=== PATIENT | female | born 1965 | race Caucasian/White ===

== ENCOUNTER 2023-05-28 09:33 | Outpatient (OUT) | payer MEDICARE, SELFPAY ==
[2023-05-28 09:57] LABS: Basophils Percent Auto 0.1 % (0.2-2.0); Eosinophils Percent Auto 0.5 % (0.9-7.0); Hematocrit 53.3 % (36.0-48.0); Immature Granulocytes Abs Auto 0.01 10^3/uL (0.00-0.03); Immature Granulocytes Pct Auto 0.1 % (0.0-0.5); Lymphocytes Absolute Auto 2.9 10^3/uL (1.2-3.8); Lymphocytes Percent Auto 36.5 % (20.5-60.0); Mean Corpuscular HGB Conc 33.8 g/dL (29.9-35.2); Mean Corpuscular Hemoglobin 31.4 pg (26.7-34.0); Mean Corpuscular Volume 92.9 fL (81.0-99.0); Monocytes Absolute Auto 0.4 10^3/uL (0.3-0.8); Neutrophils Absolute Auto 4.6 10^3/uL (1.4-6.5); Neutrophils Percent Auto 57.8 % (43.0-75.0); Platelet Count 162 10^3/uL (150-450); Red Blood Count 5.74 10^6/uL (4.20-5.40); Red Cell Distribution Width 13.1 % (11.0-15.0); White Blood Count 7.9 10^3/uL (4.0-11.0)
[2023-05-28 11:33] LABS: Alanine Aminotransferase 19 U/L (14-59); Albumin Globulin Ratio 0.9; Albumin Level 3.5 g/dL (3.4-5.0); Alkaline Phosphatase 105 U/L (46-116); Anion Gap 11.9; Aspartate Amino Transferase 16 U/L (15-37); BUN Creatinine Ratio 17.3; Bilirubin Total 0.8 mg/dL (0.2-1.0); Chloride 101 mmol/L (98-107); Chol HDL Ratio 4.5; Cholesterol 220 mg/dL (<=200); Estimated GFR (African America >60 (>=60); Estimated GFR (Non-African Ame >60 (>=60); Free Thyroxine Index 3.06 (1.30-4.50); Globulin 4.1 g/dL; Glucose 131 mg/dL (74-106); HDL Cholesterol 49 mg/dL (40-60); Potassium 3.9 mmol/L (3.5-5.1); Sodium 137 mmol/L (136-145); Thyroid Stimulating Hormone 0.904 uIU/mL (0.358-3.740); Total Protein 7.6 g/dL (6.4-8.2); Triglycerides 111 mg/dL (<=150); VLDL CHOLESTEROL 22.2 mg/dL
[2023-05-28 12:40] LABS: Estimated Average Glucose 126 mg/dL
[2023-05-29 11:09] LABS: Insulin 15.1 uIU/mL (2.6-24.9)
== END 2023-05-28 09:34 | disposition home or self-care (01) ==
LOC: LAB 09:36
PROVIDERS: PCP Nurse Practitioner Family; Visit Provider Nurse Practitioner Family
DX: E78.5 Hyperlipidemia, unspecified (principal); K21.9 Gastro-esophageal reflux disease without esophagitis; J44.9 Chronic obstructive pulmonary disease, unspecified; R73.09 Other abnormal glucose; D64.9 Anemia, unspecified
CPT/HCPCS: 36415; 80053; 80061; 83036; 83525; 83540; 84436; 84443; 84479; 85025

== ENCOUNTER 2024-12-11 06:57 | Inpatient (IN) | payer MEDICARE, SELFPAY ==
[2024-12-11] VITALS (48 sets, daily range): BP systolic 99–155; BP diastolic 55–88; PULSE 87–144; TEMP 35.9–36.8; O2SAT 88–99; BMI 31.3; BMI 29.7
--- NOTE | 2024-12-11 07:08 | ECG_ITS ---
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 Measurements Intervals [place] Rate: 141 P: 90 VT: 146 QRS: 259 QRSD: 86 T: 73 QT: 288 QTc: 370 Interpretive Statements 1120 Sinus tachycardia 2420 RSR (QR) in lead V1/V2, consistent with right ventricular conduction delay 3134 Anterior myocardial infarction, age undetermined 7100 Abnormal right axis deviation 7400 S1-S2-S3 pattern, consistent with pulmonary disease, RVH, or normal variant 9150 abnormal ECG Compared to ECG 01/14/2018 09:15:51 Right-axis deviation now present Right ventricular hypertrophy now present Ventricular premature complex(es) no longer present Electronically Signed On 12-11-2024 17:11:46 EDT by JOHN DON M.D.
--- NOTE | 2024-12-11 07:15 | ED.GENADUL1 ---
HPI HPI - General Adult General Chief complaint: Shortness of Breath/Dyspnea Stated complaint: SOB Time Seen by Provider: 12/11/24 07:08 Source: patient Mode of arrival: ambulance History of Present Illness HPI narrative: 59-year-old female presents for difficulty breathing. She has had trouble breathing for 3 days and has been coughing up yellow phlegm. She has been using her nebulizer at home. No fever no other family members are ill. She has a history of COPD and continues to smoke. She was given IV Solu-Medrol by the paramedics and aerosol treatments and the patient tells me that she is feeling somewhat better now. Related Data Home Medications ?Medication ?Instructions ?Recorded ?Confirmed albuterol sulfate 90 mcg/actuation 1 puff inhalation Q4H PRN 12/11/24 12/11/24 aerosol inhaler shortness of breath or wheezing atenolol 25 mg tablet 25 mg PO .QD 12/11/24 12/11/24 buprenorphine 8 mg-naloxone 2 mg 2 film sublingual .QD 12/11/24 12/11/24 sublingual film fluticasone fur. 100 mcg-umeclid 1 inh inhalation .QD 12/11/24 12/11/24 62.5 mcg-vilant 25 mcg inhalat.powder (Trelegy Ellipta) lisinopril 10 1 tab PO .QD 12/11/24 12/11/24 mg-hydrochlorothiazide 12.5 mg tablet montelukast 10 mg tablet 10 mg PO .QD 12/11/24 12/11/24 omeprazole 40 mg capsule,delayed 40 mg PO .ACB 12/11/24 12/11/24 release risperidone 1 mg tablet 1 mg PO .QD 12/11/24 12/11/24 simvastatin 40 mg tablet 40 mg PO QPM 12/11/24 12/11/24 trazodone 50 mg tablet 50 mg PO .QHS 12/11/24 12/11/24 Allergies Allergy/AdvReac Type Severity Reaction Status Date / Time aspirin Allergy Unknown Unknown Verified 12/11/24 07:05 PCN Allergy Intermediate Unknown Uncoded 12/11/24 07:05 Opioid HPI Opioid Management Most Recent Opioid Data: No Data to Display Review of Systems ROS Narrative A ten point review of systems is negative except as noted above. [facility] Medical History (Updated 12/11/24 @ 08:15 by Luis Roy MD) COPD (chronic obstructive pulmonary disease) ?J44.9 - Chronic obstructive pulmonary disease, unspecified (ICD-10) Social History Little interest or pleasure in doing things: not at all Feeling down, depressed, or hopeless: not at all Exam Narrative Exam Narrative: Nurses note and vital signs reviewed and patient is not hypoxic. General: The patient appears somewhat dyspneic. She is speaking in short sentences. Skin: Warm, dry, no pallor noted. There is no rash noted. Head: Normocephalic, atraumatic Eye: Normal conjunctiva, no drainage Ears, Nose, Mouth, and Throat: oral mucosa is moist. Nares patent. Cardiovascular: Regular Rate and Rhythm, tachycardic Respiratory: Breath sounds are diminished throughout and are equal. Bilateral rhonchi present Back: non-tender GI: Soft and nontender Musculoskeletal: The patient has no evidence of calf tenderness, no pitting edema, symmetrical pulses noted bilaterally Neurological: A&O, normal speech Psychiatric: Cooperative Constitutional Vital Signs, click to edit/add: Last Vital Signs Temp 97.4 F L 12/11/24 06:56 Pulse 132 H 12/11/24 08:10 Resp 25 H 12/11/24 08:10 BP 155/79 H 12/11/24 07:12 Pulse Ox 89 L 12/11/24 08:10 O2 Del Method Nasal Cannula 12/11/24 07:31 O2 Flow Rate 2 12/11/24 07:31 Course Vital Signs Vital signs: Vital Signs Temperature 97.4 F L 12/11/24 06:56 Pulse Rate 144 H 12/11/24 06:56 Respiratory Rate 28 H 12/11/24 06:56 Pulse Oximetry 88 L 12/11/24 06:56 Oxygen Delivery Method Simple Mask 12/11/24 06:56 Oxygen Delivery Flow Rate 15 12/11/24 06:56 Temperature 97.4 F L 12/11/24 06:56 Pulse Rate 132 H 12/11/24 08:10 Respiratory Rate 25 H 12/11/24 08:10 Blood Pressure 155/79 H 12/11/24 07:12 Pulse Oximetry 89 L 12/11/24 08:10 Oxygen Delivery Method Nasal Cannula 12/11/24 07:31 Oxygen Delivery Flow Rate 2 12/11/24 07:31 Medical Decision Making MDM Narrative Medical decision making narrative: Checks x-ray does not show an infiltrate. She has been tachycardic here with an O2 sat of 88 to 89%. Paramedics had given her IV Solu-Medrol and she was given another dose of IV Solu-Medrol here as well as multiple aerosol treatments and IV magnesium. The patient continues to say that she is feeling improved though she remains dyspneic. Blood cultures were obtained and she was given IV Rocephin and Zithromax. She is being admitted. Treatment diagnosis and disposition were discussed with the patient. Differential Diagnosis Differential Diagnosis: COPD exacerbation, pneumonia, COVID, influenza Lab Data Lab results reviewed: Yes I reviewed the patient's lab results Labs: Lab Results 12/11/24 12/11/24 Range/Units 07:06 07:11 WBC 11.1 H (4.0-11.0) 10^3/uL RBC 5.91 H (4.20-5.40) 10^6/uL Hgb 18.6 H (12.0-16.0) g/dL Hct 54.8 H (36.0-48.0) % MCV 92.7 (81.0-99.0) fL MCH 31.5 (26.7-34.0) pg MCHC 33.9 (29.9-35.2) g/dL RDW 12.8 (11.0-15.0) % Plt Count 151 (150-450) 10^3/uL MPV 11.0 (9.5-13.5) fL Neut % (Auto) 77.7 H (43.0-75.0) % Lymph % (Auto) 14.3 L (20.5-60.0) % [place] % (Auto) 7.1 (1.7-12.0) % Eos % (Auto) 0.3 L (0.9-7.0) % Baso % (Auto) 0.2 (0.2-2.0) % Neut # (Auto) 8.6 H (1.4-6.5) 10^3/uL Lymph # (Auto) 1.6 (1.2-3.8) 10^3/uL [place] # (Auto) 0.8 (0.3-0.8) 10^3/uL Eos # (Auto) 0.0 (0.0-0.7) 10^3/uL Baso # (Auto) 0.0 (0.0-0.1) 10^3/uL Abs Immat Gran (auto) 0.04 H (0.00-0.03) 10^3/uL Imm/Tot Granulo (auto) 0.4 (0.0-0.5) % Sodium 136 (136-145) mmol/L Potassium 3.7 (3.5-5.1) mmol/L Chloride 97 L (98-107) mmol/L Carbon Dioxide 29.3 (21.0-32.0) mmol/L Anion Gap 13.4 BUN 15.0 (7.0-18.0) mg/dL Creatinine 1.07 H (0.55-1.02) mg/dL Est GFR ( Amer) >60 (>=60 mL/min/1.73m^2) Est GFR (Non-Af Amer) 52 L (>=60 mL/min/1.73m^2) BUN/Creatinine Ratio 14.0 Glucose 158 H (74-106) mg/dL Calcium 9.2 (8.5-10.1) mg/dL Influenza Type A Ag Negative Influenza Type B Ag Negative SARS-CoV-2 Ag (CV2AG) Negative (NEGATIVE) Imaging Data Chest x-ray: Radiologist's impression: Mild enlarged heart size with mild atelectasis at the lung bases, no edema pleural effusion or pneumothorax. Mild hypoinflated lungs ECG Data Attestation: I personally reviewed and interpreted this ECG as follows: (EKG on my interpretation shows sinus tachycardia with a rate of 141) Critical Care Time Critical Care Time Critical Care Time: Yes Total Critical Care Time: 40 Attestation: Due to the high probability of sudden and clinically significant deterioration in the patient's condition he/she required the highest level of my preparedness to intervene urgently I provided critical care time including documentation time, medication orders and management, reevaluation, vital sign assessment, ordering and reviewing of lab tests, ordering and reviewing of x-ray studies, and admission orders. Aggregate critical care time is 40 minutes including only time during which I was engaged in work directly related to his/her care and did not include time spent treating other patients simultaneously. Discharge Plan Discharge Chief Complaint: Shortness of Breath/Dyspnea Clinical Impression: COPD exacerbation Patient Disposition: Admitted As Inpatient Time of Disposition Decision: 08:15 Condition: Fair
[2024-12-11 07:25] LABS: Basophils Percent Auto 0.2 % (0.2-2.0); Eosinophils Percent Auto 0.3 % (0.9-7.0); Hematocrit 54.8 % (36.0-48.0); Hemoglobin 18.6 g/dL (12.0-16.0); Immature Granulocytes Abs Auto 0.04 10^3/uL (0.00-0.03); Immature Granulocytes Pct Auto 0.4 % (0.0-0.5); Lymphocytes Absolute Auto 1.6 10^3/uL (1.2-3.8); Lymphocytes Percent Auto 14.3 % (20.5-60.0); Mean Corpuscular HGB Conc 33.9 g/dL (29.9-35.2); Mean Corpuscular Hemoglobin 31.5 pg (26.7-34.0); Mean Corpuscular Volume 92.7 fL (81.0-99.0); Monocytes Absolute Auto 0.8 10^3/uL (0.3-0.8); Monocytes Percent Auto 7.1 % (1.7-12.0); Neutrophils Absolute Auto 8.6 10^3/uL (1.4-6.5); Neutrophils Percent Auto 77.7 % (43.0-75.0); Platelet Count 151 10^3/uL (150-450); Red Blood Count 5.91 10^6/uL (4.20-5.40); Red Cell Distribution Width 12.8 % (11.0-15.0); White Blood Count 11.1 10^3/uL (4.0-11.0)
[2024-12-11] MEDS: ALBUTEROL SULFATE 2.5 MG/3 ML VIAL NEB IH ×2 (07:30→08:18)
[2024-12-11 07:32] LABS: Anion Gap 13.4; Calcium 9.2 mg/dL (8.5-10.1); Carbon Dioxide 29.3 mmol/L (21.0-32.0); Chloride 97 mmol/L (98-107); Estimated GFR (African America >60 (>=60 mL/min/1.73m^2); Estimated GFR (Non-African Ame 52 (>=60 mL/min/1.73m^2); Glucose 158 mg/dL (74-106); Potassium 3.7 mmol/L (3.5-5.1); Sodium 136 mmol/L (136-145)
[2024-12-11 07:34] LABS: Influenza Virus A Antigen Negative; Influenza Virus B Antigen Negative; Internal Control Within Normal Limits; SARS-CoV-2 Ag NEGATIVE (NEGATIVE)
--- NOTE | 2024-12-11 08:07 | PC.NURSE ---
pt resting in bed with SpO2 at 88-89% on 3L NC. Bumped up O2 to 4L NC. 90%. made aware, awaiting new med orders.
[2024-12-11] MEDS: CEFTRIAXONE 1,000 MG in 0.9 % SODIUM CHLORIDE 50 ML 100 MG IV (08:18)
[2024-12-11] MEDS: METHYLPREDNISOLONE SOD SUCC PF 125 MG/2 ML VIAL IVP ×3 (08:19→20:20)
[2024-12-11] MEDS: MAGNESIUM SULFATE IN WATER 2 GM/50 ML PREMIX IV (08:29)
[2024-12-11] MEDS: AZITHROMYCIN 500 MG in 0.9 % SODIUM CHLORIDE 250 ML 250 MG IV (09:10)
--- NOTE | 2024-12-11 09:53 | P.HP_ITS ---
HPI H&P: HPI History of Present Illness Chief complaint: SOB,COPD EXAC Narrative: Patient with a known history of COPD presented to the emergency with increasing shortness of breath over the last 1 to 2 days, sputum production, she did have a sore throat that resolved, denies fever, When I saw patient in the emergency room, significant dyspnea, and this is just at rest, O2 sat 88% and is on 3 L Opioid HPI Opioid Management Most Recent Pain and Opioid Data: No Data to Display Review of Systems ROS Status of ROS 10 or more systems reviewed and unremark able except as noted in history and below PFSH PFS Medical History (Updated 12/11/24 @ 09:59 by Cole Davis MD) Degenerative disc disease Arthritis ?M19.90 - Unspecified osteoarthritis, unspecified site (ICD-10) Herniated disc Hypertension ?I10 - Essential (primary) hypertension (ICD-10) COPD (chronic obstructive pulmonary disease) ?J44.9 - Chronic obstructive pulmonary disease, unspecified (ICD-10) Surgical History (Updated 12/11/24 @ 09:22 by Miriam Paz RN) History of nasal surgery ?Z98.890 - Other specified postprocedural states (ICD-10) H/O left knee surgery ?Z98.890 - Other specified postprocedural states (ICD-10) History of appendectomy ?Z90.49 - Acquired absence of other specified parts of digestive tract (ICD- 10) Social History Little interest or pleasure in doing things: not at all Feeling down, depressed, or hopeless: not at all Meds Home Medications and Allergies Home Medications ?Medication ?Instructions ?Recorded ?Confirmed ?Type albuterol sulfate 90 mcg/actuation 1 puff inhalation Q4H PRN 12/11/24 12/11/24 History aerosol inhaler shortness of breath or wheezing atenolol 25 mg tablet 25 mg PO .QD 12/11/24 12/11/24 History buprenorphine 8 mg-naloxone 2 mg 2 film sublingual .QD 12/11/24 12/11/24 History sublingual film fluticasone fur. 100 mcg-umeclid 1 inh inhalation .QD 12/11/24 12/11/24 History 62.5 mcg-vilant 25 mcg inhalat.powder (Trelegy Ellipta) lisinopril 10 1 tab PO .QD 12/11/24 12/11/24 History mg-hydrochlorothiazide 12.5 mg tablet montelukast 10 mg tablet 10 mg PO .QD 12/11/24 12/11/24 History omeprazole 40 mg capsule,delayed 40 mg PO .ACB 12/11/24 12/11/24 History release risperidone 1 mg tablet 1 mg PO .QD 12/11/24 12/11/24 History simvastatin 40 mg tablet 40 mg PO QPM 12/11/24 12/11/24 History trazodone 50 mg tablet 50 mg PO .QHS 12/11/24 12/11/24 History Allergies Allergy/AdvReac Type Severity Reaction Status Date / Time aspirin Allergy Unknown Unknown Verified 12/11/24 07:05 PCN Allergy Intermediate Unknown Uncoded 12/11/24 07:05 Exam Constitutional Vital Signs, click to edit/add: Last Vital Signs Temp 97.4 F L 12/11/24 06:56 Pulse 130 H 12/11/24 09:20 Resp 30 H 12/11/24 09:20 BP 117/87 12/11/24 09:15 Pulse Ox 91 L 12/11/24 09:20 O2 Del Method Nasal Cannula 12/11/24 07:31 O2 Flow Rate 2 12/11/24 07:31 Documenting provider has reviewed patient's vital signs: yes Common normals: apparent distress (Moderate respiratory distress) Chest Common normals: inspection of chest normal Respiratory Common normals: abnormal respiratory effort (Moderate distress at rest) and not clear to ascultation bilaterally Effort & inspection: tachypneic Auscultation: rhonchi and wheezes Cardio Common normals: regular rhythm Rate: tachycardic GI Common normals: Normal to inspection, nondistended, normoactive bowel sounds present Extremity Common normals: normal to inspection, full ROM, normal capillary refill and no clubbing, cyanosis or edema Neuro Common normals: oriented x3, CN's II-XII intact bilaterally, moves all extremities and no focal motor deficits Results Labs Labs: Short CBC 12/11/24 Range/Units 07:06 WBC 11.1 H (4.0-11.0) 10^3/uL Hgb 18.6 H (12.0-16.0) g/dL Hct 54.8 H (36.0-48.0) % Plt Count 151 (150-450) 10^3/uL BMP 12/11/24 07:06 Sodium 136 Potassium 3.7 Chloride 97 L Carbon Dioxide 29.3 BUN 15.0 Creatinine 1.07 H Glucose 158 H Calcium 9.2 Assessment and Plan Assessment and Plan (1) COPD exacerbation: (2) Herniated disc: (3) Hypertension: (4) COPD (chronic obstructive pulmonary disease): (5) Sinus tachycardia: (6) Respiratory distress: (7) Acute respiratory failure with hypoxia: (8) Leukocytosis: Plan Admission findings: Sinus tachycardia, respiratory distress, uncontrolled hypertension, acute hypoxia, verbally reported as O2 sat around 80, placed on supplemental oxygen at 3 L and it was only 88%, leukocytosis, chest x-ray consistent with bilateral lower lobe pneumonia causing acute hypoxia and an acute exacerbation of COPD Bilateral lower lobe pneumonia causing acute exacerbation of COPD with acute hypoxia-supplemental oxygen, steroids, aerosols we need to use Xopenex secondary to tachycardia, try patient on IPV's if she is not moving significant air Leukocytosis likely secondary to the above-monitor daily Acute elevation in creatinine-hold off on IV fluids at the present time Uncontrolled hypertension-check BNP and high-sensitivity troponin Iron deficiency anemia-monitor daily Lumbar radiculopathy-Home medications GERD-continue with home medications Insomnia-continue with home medications Admission status: Patient admitted with acute hypoxia secondary to acute exacerbation of COPD secondary to bilateral lower lower lobe pneumonia, significant hypoxia with O2 sat of 88% and that is on 3 L she does not use supplemental oxygen at home, within a high degree of medical certainty she will not be discharged tomorrow secondary to the severity of her hypoxia, medically necessary treatment will span 2 midnights, inpatient status in the stepdown unit ICU
[2024-12-11 10:27] LABS: Lactate/Lactic Acid 1.9 mmol/L (0.4-2.0)
[2024-12-11 10:29] LABS: Alanine Aminotransferase 12 U/L (14-59); Albumin Globulin Ratio 0.9; Albumin Level 3.7 g/dL (3.4-5.0); Alkaline Phosphatase 92 U/L (46-116); Aspartate Amino Transferase 12 U/L (15-37); Bilirubin Direct 0.3 mg/dL (0.0-0.2); Bilirubin Total 1.2 mg/dL (0.2-1.0); Globulin 4.3 g/dL; Magnesium 1.9 mg/dL (1.8-2.4); Troponin I High Sensitivity <4.0 pg/mL (4.0-51.3)
[2024-12-11] MEDS: LEVALBUTEROL HCL 0.63 MG/3 ML VIAL.NEB IH ×3 (10:50→23:34)
[2024-12-11] MEDS: IPRATROPIUM BROMIDE 0.5 MG/2.5 ML VIAL.NEB IH ×3 (10:50→23:33)
[2024-12-11] MEDS: BUDESONIDE 0.5 MG/2 ML AMPULE NEB IH ×2 (10:50→23:33)
[2024-12-11] MEDS: BENZONATATE 100 MG CAPSULE 200 MG PO ×2 (11:52→21:15)
[2024-12-11] MEDS: ENOXAPARIN SODIUM 40 MG/0.4 ML SYRINGE SUBQ (11:52)
[2024-12-11] MEDS: ACETAMINOPHEN 500 MG TABLET 1000 MG PO ×2 (12:10→21:14)
[2024-12-11] MEDS: LEVOFLOXACIN IN DEXTROSE 5 % 750 MG/150 ML PREMIX 100 MG IV (13:48)
[2024-12-11] MEDS: LISINOPRIL 10 MG TABLET PO (17:36)
[2024-12-11] MEDS: HYDROCHLOROTHIAZIDE 25 MG TABLET 12.5 MG PO (17:36)
[2024-12-11] MEDS: TRAMADOL HCL 50 MG TABLET PO ×2 (17:37→23:27)
[2024-12-11] MEDS: NICOTINE 21 MG PATCH.TD24 TD (20:21)
[2024-12-11] MEDS: ATORVASTATIN CALCIUM 20 MG TABLET PO (21:15)
[2024-12-11] MEDS: risperiDONE 1 MG TABLET PO (21:15)
[2024-12-11] MEDS: TRAZODONE HCL 50 MG TABLET PO (23:28)
[2024-12-12] VITALS (25 sets, daily range): BP systolic 96–118; BP diastolic 61–80; PULSE 76–115; TEMP 36.3–36.7; O2SAT 87–100
[2024-12-12] MEDS: METHYLPREDNISOLONE SOD SUCC PF 125 MG/2 ML VIAL IVP ×4 (02:02→21:07)
[2024-12-12] MEDS: LEVALBUTEROL HCL 0.63 MG/3 ML VIAL.NEB IH ×6 (04:22→23:36)
[2024-12-12] MEDS: SODIUM CHLORIDE 0.9% INHALATION 3 ML NEB 6 ML IH ×2 (04:22→19:33)
[2024-12-12] MEDS: IPRATROPIUM BROMIDE 0.5 MG/2.5 ML VIAL.NEB IH ×4 (04:22→23:36)
[2024-12-12] MEDS: PANTOPRAZOLE SODIUM 40 MG TABLET.DR PO (05:43)
[2024-12-12] MEDS: BENZONATATE 100 MG CAPSULE 200 MG PO ×3 (05:43→21:08)
[2024-12-12 06:15] LABS: A. calcoaceticus-baumannii Cpx NOT DETECTED (NOT DETECTE); Bacteroides fragilis NOT DETECTED (NOT DETECTE); Candida albicans NOT DETECTED (NOT DETECTE); Candida auris NOT DETECTED (NOT DETECTE); Candida glabrata NOT DETECTED (NOT DETECTE); Candida krusei NOT DETECTED (NOT DETECTE); Candida parapsilosis NOT DETECTED (NOT DETECTE); Candida tropicalis NOT DETECTED (NOT DETECTE); Cryptococcus neoformans/gattii NOT DETECTED (NOT DETECTE); Enterobacter cloacae complex NOT DETECTED (NOT DETECTE); Enterobacterales NOT DETECTED (NOT DETECTE); Enterococcus faecalis NOT DETECTED (NOT DETECTE); Enterococcus faecium NOT DETECTED (NOT DETECTE); Haemophilus influenzae NOT DETECTED (NOT DETECTE); Klebsiella aerogenes NOT DETECTED (NOT DETECTE); Klebsiella pneumoniae group NOT DETECTED (NOT DETECTE); Listeria monocytogenes NOT DETECTED (NOT DETECTE); Neisseria meningitidis NOT DETECTED (NOT DETECTE); Proteus spp. NOT DETECTED (NOT DETECTE); Pseudomonas aeruginosa NOT DETECTED (NOT DETECTE); Salmonella spp. NOT DETECTED (NOT DETECTE); Serratia marcescens NOT DETECTED (NOT DETECTE); Staphylococcus epidermidis NOT DETECTED (NOT DETECTE); Staphylococcus lugdunensis NOT DETECTED (NOT DETECTE); Stenotrophomonas maltophilia NOT DETECTED (NOT DETECTE); Streptococcus agalactiae NOT DETECTED (NOT DETECTE); Streptococcus pneumoniae NOT DETECTED (NOT DETECTE); Streptococcus pyogenes NOT DETECTED (NOT DETECTE); Streptococcus spp. NOT DETECTED (NOT DETECTE)
[2024-12-12 06:29] LABS: Basophils Percent Auto 0.1 % (0.2-2.0); Hematocrit 51.7 % (36.0-48.0); Hemoglobin 17.3 g/dL (12.0-16.0); Immature Granulocytes Abs Auto 0.03 10^3/uL (0.00-0.03); Immature Granulocytes Pct Auto 0.3 % (0.0-0.5); Lymphocytes Percent Auto 10.7 % (20.5-60.0); Mean Corpuscular HGB Conc 33.5 g/dL (29.9-35.2); Mean Corpuscular Hemoglobin 30.8 pg (26.7-34.0); Mean Platelet Volume 10.8 fL (9.5-13.5); Monocytes Absolute Auto 0.2 10^3/uL (0.3-0.8); Monocytes Percent Auto 2.2 % (1.7-12.0); Neutrophils Absolute Auto 8.3 10^3/uL (1.4-6.5); Neutrophils Percent Auto 86.7 % (43.0-75.0); Platelet Count 158 10^3/uL (150-450); Red Blood Count 5.62 10^6/uL (4.20-5.40); Red Cell Distribution Width 12.4 % (11.0-15.0); White Blood Count 9.6 10^3/uL (4.0-11.0)
[2024-12-12 06:45] LABS: BUN Creatinine Ratio 18.8; Calcium 9.2 mg/dL (8.5-10.1); Carbon Dioxide 29.7 mmol/L (21.0-32.0); Chloride 99 mmol/L (98-107); Estimated GFR (African America >60 (>=60 mL/min/1.73m^2); Estimated GFR (Non-African Ame >60 (>=60 mL/min/1.73m^2); Glucose 152 mg/dL (74-106); Potassium 3.7 mmol/L (3.5-5.1); Sodium 137 mmol/L (136-145)
--- NOTE | 2024-12-12 06:49 | P.PN_ITS ---
Progress Note: Subjective Subjective Interval history: Patient states she does feel better than previous day, but still with conversational dyspnea Exam Constitutional Vital Signs, click to edit/add: Last Vital Signs Temp 98.0 F 12/11/24 23:54 Pulse 115 H 12/12/24 05:49 Resp 24 H 12/12/24 04:22 BP 135/84 12/11/24 23:54 Pulse Ox 90 L 12/12/24 05:49 O2 Del Method Nasal Cannula 12/12/24 04:22 O2 Flow Rate 3 12/12/24 04:22 Documenting provider has reviewed patient's vital signs: yes Common normals: apparent distress (Mild conversational dyspnea) Chest Common normals: inspection of chest normal Respiratory Common normals: abnormal respiratory effort (Mild conversational dyspnea) and not clear to ascultation bilaterally Auscultation: rhonchi (Somewhat better air exchange) and wheezes Cardio Common normals: regular rate and regular rhythm GI Common normals: Normal to inspection, nondistended, normoactive bowel sounds present and soft to palpation Progress Note: Objective Labs Labs: Short CBC 12/11/24 12/12/24 Range/Units 07:06 05:50 WBC 11.1 H 9.6 (4.0-11.0) 10^3/uL Hgb 18.6 H 17.3 H (12.0-16.0) g/dL Hct 54.8 H 51.7 H (36.0-48.0) % Plt Count 151 158 (150-450) 10^3/uL BMP 12/11/24 12/12/24 07:06 05:50 Sodium 136 137 Potassium 3.7 3.7 Chloride 97 L 99 Carbon Dioxide 29.3 29.7 BUN 15.0 16.0 Creatinine 1.07 H 0.85 Glucose 158 H 152 H Calcium 9.2 9.2 Liver Function 12/11/24 Range/Units 07:06 Total Bilirubin 1.2 H (0.2-1.0) mg/dL Direct Bilirubin 0.3 H (0.0-0.2) mg/dL AST 12 L (15-37) U/L ALT 12 L (14-59) U/L Alkaline Phosphatase 92 (46-116) U/L Albumin 3.7 (3.4-5.0) g/dL Progress Note: A&P Assessment and Plan (1) COPD exacerbation: (2) Herniated disc: (3) Hypertension: (4) COPD (chronic obstructive pulmonary disease): (5) Sinus tachycardia: (6) Respiratory distress: (7) Acute respiratory failure with hypoxia: (8) Leukocytosis: Plan Admission findings: Sinus tachycardia, respiratory distress, uncontrolled hypertension, acute hypoxia, verbally reported as O2 sat around 80, placed on supplemental oxygen at 3 L and it was only 88%, leukocytosis, chest x-ray consistent with bilateral lower lobe pneumonia causing acute hypoxia and an acute exacerbation of COPD Bilateral lower lobe pneumonia causing acute exacerbation of COPD with acute hypoxia-still on 3 L of supplemental oxygen O2 sats in the low 90s persisting, unable to titrate, maintain current medications, tolerating IPV's Leukocytosis likely secondary to the above-improved today Acute elevation in creatinine-improved today Polycythemia secondary to COPD-Down somewhat today, continue to monitor Uncontrolled hypertension-stable Lumbar radiculopathy-Home medications GERD-continue with home medications Insomnia-continue with home medications Admission status: Patient admitted with acute hypoxia secondary to acute exacerbation of COPD secondary to bilateral lower lower lobe pneumonia, significant hypoxia with O2 sat of 88% and that is on 3 L she does not use supplemental oxygen at home, within a high degree of medical certainty she will not be discharged tomorrow secondary to the severity of her hypoxia, medically necessary treatment will span 2 midnights, inpatient status in the stepdown unit ICU ?
[2024-12-12] MEDS: TRAMADOL HCL 50 MG TABLET PO (07:24)
[2024-12-12 07:30] LABS: Source Blood
[2024-12-12 07:31] LABS: Staphylococcus spp. DETECTED (NOT DETECTE)
[2024-12-12] MEDS: LISINOPRIL 10 MG TABLET PO (08:24)
[2024-12-12] MEDS: ATENOLOL 25 MG TABLET PO (08:24)
[2024-12-12] MEDS: CEFTRIAXONE 1,000 MG in 0.9 % SODIUM CHLORIDE 50 ML 100 MG IV (08:24)
[2024-12-12] MEDS: MONTELUKAST SODIUM 10 MG TABLET PO (08:24)
[2024-12-12] MEDS: ENOXAPARIN SODIUM 40 MG/0.4 ML SYRINGE SUBQ (08:24)
[2024-12-12] MEDS: HYDROCHLOROTHIAZIDE 25 MG TABLET 12.5 MG PO (08:24)
--- NOTE | 2024-12-12 08:27 | CM.NOTE ---
Rounds made with Dr. Davis, pt requiring oxygen @3L NC and still having increased SOB with minimal activity. No discharge today, pt inpatient status.
--- NOTE | 2024-12-12 09:05 | CM.NOTE ---
Entered pt's room to discuss Medicare paper. Pt's c/o feeling very SOB, lips purplish/blue and pt tachypneic 02 sat -85%, oxygen noted to be unplugged from wall. Re-connected tubing to oxygen, within minutes oxygen sat back up to 90% on 3L NC. Pt verbalizes feeling less SOB and easier to take a deep breath. Face and lips pink up with oxygen being applied. RN notified.
--- NOTE | 2024-12-12 10:00 | CM.NOTE ---
Important Message From Medicare discussed with pt, pt verbalizes understanding and signs paper. Original given to pt and copy placed on pt's chart.
[2024-12-12] MEDS: NON-FORMULARY 1 EACH (Buprenorphine-Naloxone 8-2 mg film) SL ×2 (10:54→16:29)
[2024-12-12] MEDS: BUDESONIDE 0.5 MG/2 ML AMPULE NEB IH ×2 (11:10→23:36)
[2024-12-12] MEDS: LEVOFLOXACIN IN DEXTROSE 5 % 750 MG/150 ML PREMIX 100 MG IV (13:14)
[2024-12-12] MEDS: NICOTINE 21 MG PATCH.TD24 TD (21:07)
[2024-12-12] MEDS: TRAZODONE HCL 50 MG TABLET PO (21:08)
[2024-12-12] MEDS: ATORVASTATIN CALCIUM 20 MG TABLET PO (21:08)
[2024-12-12] MEDS: risperiDONE 1 MG TABLET PO (21:08)
[2024-12-12] MEDS: NON-FORMULARY 1 EACH (Buprenorphine-Naloxone 8-2 mg film) 0.5 EACH SL (21:10)
[2024-12-13] VITALS (19 sets, daily range): BP systolic 111–118; BP diastolic 62–68; PULSE 63–103; TEMP 36.3–37.4; O2SAT 87–98
[2024-12-13] MEDS: IPRATROPIUM BROMIDE 0.5 MG/2.5 ML VIAL.NEB IH ×4 (03:46→22:22)
[2024-12-13] MEDS: SODIUM CHLORIDE 0.9% INHALATION 3 ML NEB 6 ML IH ×2 (03:46→16:28)
[2024-12-13] MEDS: LEVALBUTEROL HCL 0.63 MG/3 ML VIAL.NEB IH ×4 (03:46→22:22)
[2024-12-13] MEDS: METHYLPREDNISOLONE SOD SUCC PF 125 MG/2 ML VIAL IVP ×2 (03:51→08:14)
[2024-12-13] MEDS: PANTOPRAZOLE SODIUM 40 MG TABLET.DR PO (05:49)
[2024-12-13] MEDS: BENZONATATE 100 MG CAPSULE 200 MG PO ×3 (05:49→22:03)
[2024-12-13 06:21] LABS: Basophils Percent Auto 0.1 % (0.2-2.0); Hematocrit 50.4 % (36.0-48.0); Hemoglobin 16.8 g/dL (12.0-16.0); Immature Granulocytes Abs Auto 0.05 10^3/uL (0.00-0.03); Immature Granulocytes Pct Auto 0.4 % (0.0-0.5); Lymphocytes Absolute Auto 1.2 10^3/uL (1.2-3.8); Lymphocytes Percent Auto 10.5 % (20.5-60.0); Mean Corpuscular HGB Conc 33.3 g/dL (29.9-35.2); Mean Corpuscular Hemoglobin 30.7 pg (26.7-34.0); Mean Platelet Volume 10.9 fL (9.5-13.5); Monocytes Absolute Auto 0.3 10^3/uL (0.3-0.8); Monocytes Percent Auto 2.7 % (1.7-12.0); Neutrophils Absolute Auto 9.7 10^3/uL (1.4-6.5); Neutrophils Percent Auto 86.3 % (43.0-75.0); Platelet Count 155 10^3/uL (150-450); Red Blood Count 5.48 10^6/uL (4.20-5.40); Red Cell Distribution Width 12.5 % (11.0-15.0); White Blood Count 11.3 10^3/uL (4.0-11.0)
[2024-12-13 06:28] LABS: Alanine Aminotransferase 20 U/L (14-59); Albumin Globulin Ratio 0.7; Albumin Level 2.7 g/dL (3.4-5.0); Alkaline Phosphatase 69 U/L (46-116); Anion Gap 8.8; Aspartate Amino Transferase 23 U/L (15-37); BUN Creatinine Ratio 26.6; Bilirubin Direct 0.1 mg/dL (0.0-0.2); Bilirubin Total 0.5 mg/dL (0.2-1.0); Calcium 8.8 mg/dL (8.5-10.1); Carbon Dioxide 33.4 mmol/L (21.0-32.0); Chloride 99 mmol/L (98-107); Estimated GFR (African America >60 (>=60 mL/min/1.73m^2); Estimated GFR (Non-African Ame >60 (>=60 mL/min/1.73m^2); Globulin 3.7 g/dL; Glucose 169 mg/dL (74-106); Potassium 4.2 mmol/L (3.5-5.1); Sodium 137 mmol/L (136-145); Total Protein 6.4 g/dL (6.4-8.2)
[2024-12-13] MEDS: HYDROCHLOROTHIAZIDE 25 MG TABLET 12.5 MG PO (08:14)
[2024-12-13] MEDS: MONTELUKAST SODIUM 10 MG TABLET PO (08:14)
[2024-12-13] MEDS: LISINOPRIL 10 MG TABLET PO (08:14)
[2024-12-13] MEDS: ATENOLOL 25 MG TABLET PO (08:14)
[2024-12-13] MEDS: ENOXAPARIN SODIUM 40 MG/0.4 ML SYRINGE SUBQ (08:15)
[2024-12-13] MEDS: NON-FORMULARY 1 EACH (Buprenorphine-Naloxone 8-2 mg film) SL ×2 (08:23→17:00)
[2024-12-13] MEDS: CEFTRIAXONE 1,000 MG in 0.9 % SODIUM CHLORIDE 50 ML 100 MG IV (08:42)
[2024-12-13] MEDS: BUDESONIDE 0.5 MG/2 ML AMPULE NEB IH ×2 (11:48→22:23)
[2024-12-13] MEDS: METHYLPREDNISOLONE SOD SUCC PF 40 MG/ML VIAL IVP ×2 (13:05→21:53)
--- NOTE | 2024-12-13 16:40 | P.IMPN_ITS ---
Progress Note: A&P Assessment and Plan (1) Acute respiratory failure with hypoxia: Assessment and Plan: Does not use O2 at baseline. Still hypoxic and requiring O2. Wean off O2 as tolerated. (2) Bilateral pneumonia: Assessment and Plan: On IV Rocephin/Azithromycin. Negative Resp Panel. Cultures negative. Qualifiers: Pneumonia type: due to unspecified organism Lung location: lower lobe of lung Qualified Code(s): J18.9 - Pneumonia, unspecified organism (3) COPD exacerbation: Assessment and Plan: Still dyspneic, hypoxic but overall improved. C/w steroids, inhaled bronchodilators. (4) Leukocytosis: Assessment and Plan: Stable. Likely due to Pna, steroids. Qualifiers: Leukocytosis type: leukemoid reaction Qualified Code(s): D72.823 - Leukemoid reaction (5) Hypertension: Assessment and Plan: BP Stable. C/w home medications . Qualifiers: Hypertension type: primary hypertension Qualified Code(s): I10 - Essential (primary) hypertension (6) HLD (hyperlipidemia): Assessment and Plan: C/w statin Qualifiers: Hyperlipidemia type: unspecified Qualified Code(s): E78.5 - Hyperlipidemia, unspecified Plan Still dyspneic, hypoxic and requires continued inpatient treatment, monitoring and treatment with IV abx, steroids and inhaled bronchodilators. Internal Medicine - PN: Subj Subjective Interval history: Seen and examined. States feeling better overall but still needing O2, and feeling SOB on minimal exertion. She states that she has to stop and catch her breath a while even after using the bedside commode. Exam Constitutional Vital Signs, click to edit/add: Last Vital Signs Temp 97.6 F 12/13/24 15:37 Pulse 63 12/13/24 15:59 Resp 20 12/13/24 15:37 BP 112/68 12/13/24 15:37 Pulse Ox 90 L 12/13/24 15:37 O2 Del Method Nasal Cannula 12/13/24 15:37 O2 Flow Rate 1 12/13/24 15:37 Documenting provider has reviewed patient's vital signs: yes Common normals: no apparent distress and oriented x3 General appearance: cooperative Respiratory Common normals: normal respiratory effort Effort & inspection: able to speak in complete sentences and tachypneic Auscultation: wheezes Cardio Common normals: regular rate, S1 normal heart sound and S2 normal heart sound Rate: regular rate Heart sounds: S1 normal and S2 normal GI Common normals: Normal to inspection, nondistended, normoactive bowel sounds present, soft to palpation, non-tender and no hepatosplenomegaly Palpation: soft and no hepatosplenomegaly Extremity Common normals: no clubbing, cyanosis or edema Neuro Common normals: oriented x3, moves all extremities and no focal motor deficits Psych Common normals: mental status grossly normal, denies hallucinations, denies homicidal ideation and denies suicidal ideation Internal Medicine - PN: Obj Da Labs Labs: Laboratory Results - last 24 hr 12/13/24 05:47 WBC 11.3 H RBC 5.48 H Hgb 16.8 H Hct 50.4 H MCV 92.0 MCH 30.7 MCHC 33.3 RDW 12.5 Plt Count 155 MPV 10.9 Neut % (Auto) 86.3 H Lymph % (Auto) 10.5 L [place] % (Auto) 2.7 Eos % (Auto) 0.0 L Baso % (Auto) 0.1 L Neut # (Auto) 9.7 H Lymph # (Auto) 1.2 [place] # (Auto) 0.3 Eos # (Auto) 0.0 Baso # (Auto) 0.0 Abs Immat Gran (auto) 0.05 H Imm/Tot Granulo (auto) 0.4 Sodium 137 Potassium 4.2 Chloride 99 Carbon Dioxide 33.4 H Anion Gap 8.8 BUN 21.0 H Creatinine 0.79 Est GFR ( Amer) >60 Est GFR (Non-Af Amer) >60 BUN/Creatinine Ratio 26.6 Glucose 169 H Calcium 8.8 Total Bilirubin 0.5 Direct Bilirubin 0.1 AST 23 ALT 20 Alkaline Phosphatase 69 Total Protein 6.4 Albumin 2.7 L Globulin 3.7 Albumin/Globulin Ratio 0.7
[2024-12-13] MEDS: AZITHROMYCIN 250 MG TABLET 500 MG PO (17:24)
[2024-12-13] MEDS: TRAZODONE HCL 50 MG TABLET PO (21:53)
[2024-12-13] MEDS: ACETAMINOPHEN 500 MG TABLET 1000 MG PO (21:54)
[2024-12-13] MEDS: ATORVASTATIN CALCIUM 20 MG TABLET PO (21:54)
[2024-12-13] MEDS: risperiDONE 1 MG TABLET PO (21:54)
[2024-12-13] MEDS: NON-FORMULARY 1 EACH (Buprenorphine-Naloxone 8-2 mg film) 0.5 EACH SL (22:06)
[2024-12-13] MEDS: NICOTINE 21 MG PATCH.TD24 TD (22:18)
[2024-12-14] VITALS (14 sets, daily range): BP systolic 95–106; BP diastolic 58–68; PULSE 59–94; TEMP 36.4–36.6; O2SAT 82–94
[2024-12-14] MEDS: LEVALBUTEROL HCL 0.63 MG/3 ML VIAL.NEB IH ×2 (04:01→11:03)
[2024-12-14] MEDS: IPRATROPIUM BROMIDE 0.5 MG/2.5 ML VIAL.NEB IH ×2 (04:01→11:03)
[2024-12-14] MEDS: SODIUM CHLORIDE 0.9% INHALATION 3 ML NEB 6 ML IH (04:01)
[2024-12-14] MEDS: BENZONATATE 100 MG CAPSULE 200 MG PO ×2 (05:27→13:12)
[2024-12-14] MEDS: METHYLPREDNISOLONE SOD SUCC PF 40 MG/ML VIAL IVP ×2 (05:32→13:13)
[2024-12-14] MEDS: PANTOPRAZOLE SODIUM 40 MG TABLET.DR PO (05:32)
[2024-12-14 06:23] LABS: Anion Gap 6.4; BUN Creatinine Ratio 24.2; Calcium 8.6 mg/dL (8.5-10.1); Carbon Dioxide 35.4 mmol/L (21.0-32.0); Chloride 99 mmol/L (98-107); Estimated GFR (African America >60 (>=60 mL/min/1.73m^2); Estimated GFR (Non-African Ame 57 (>=60 mL/min/1.73m^2); Glucose 149 mg/dL (74-106); Potassium 3.8 mmol/L (3.5-5.1); Sodium 137 mmol/L (136-145)
[2024-12-14 06:25] LABS: Hemoglobin 17.1 g/dL (12.0-16.0); Mean Corpuscular HGB Conc 33.5 g/dL (29.9-35.2); Mean Corpuscular Hemoglobin 30.8 pg (26.7-34.0); Mean Corpuscular Volume 91.9 fL (81.0-99.0); Mean Platelet Volume 10.1 fL (9.5-13.5); Platelet Count 173 10^3/uL (150-450); Red Blood Count 5.55 10^6/uL (4.20-5.40); Red Cell Distribution Width 12.3 % (11.0-15.0); White Blood Count 10.9 10^3/uL (4.0-11.0)
[2024-12-14 06:41] LABS: Lymphocytes Absolute Manual 1.96 10^3/uL (1.20-3.80); Monocytes Absolute Manual 0.65 10^3/uL (0.30-0.80); Segmented Neut Absolute Manual 8.28 10^3/uL (1.4-6.5)
[2024-12-14] MEDS: CEFTRIAXONE 1,000 MG in 0.9 % SODIUM CHLORIDE 50 ML 100 MG IV (09:10)
[2024-12-14] MEDS: ENOXAPARIN SODIUM 40 MG/0.4 ML SYRINGE SUBQ (09:10)
[2024-12-14] MEDS: MONTELUKAST SODIUM 10 MG TABLET PO (09:11)
[2024-12-14] MEDS: NON-FORMULARY 1 EACH (Buprenorphine-Naloxone 8-2 mg film) SL (09:11)
[2024-12-14] MEDS: HYDROCHLOROTHIAZIDE 25 MG TABLET 12.5 MG PO (09:11)
[2024-12-14] MEDS: LISINOPRIL 10 MG TABLET PO (09:11)
[2024-12-14] MEDS: ATENOLOL 25 MG TABLET PO (09:11)
[2024-12-14] MEDS: BUDESONIDE 0.5 MG/2 ML AMPULE NEB IH (11:03)
--- NOTE | 2024-12-14 12:18 | PM.DS1 ---
DS: Providers Provider Date of admission: 12/11/24 09:38 Primary care physician: VICTOR MANUEL VELASQUEZ Admitting clinician: Cole Davis Attending physician on admission: Cole Davis Consults: 12/11/24 10:00 Consult to Pharmacy Routine Consulting Provider: Reason for consultation: Please [place] me when Med Rec is Updated Has provider been notified: No Attending physician on discharge: Shaikh Carlos Discharging clinician: Shaikh Carlos Anticipated date of discharge: 12/14/24 DS: Diagnosis Discharge Diagnosis (1) Acute respiratory failure with hypoxia: (2) Bilateral pneumonia: Qualifiers: Pneumonia type: due to unspecified organism Lung location: lower lobe of lung Qualified Code(s): J18.9 - Pneumonia, unspecified organism (3) COPD exacerbation: (4) Leukocytosis: Qualifiers: Leukocytosis type: leukemoid reaction Qualified Code(s): D72.823 - Leukemoid reaction (5) Hypertension: Qualifiers: Hypertension type: primary hypertension Qualified Code(s): I10 - Essential (primary) hypertension (6) HLD (hyperlipidemia): Qualifiers: Hyperlipidemia type: unspecified Qualified Code(s): E78.5 - Hyperlipidemia, unspecified DS: Summary Hospital Course Hospital Course: 59-year-old female with history of essential hypertension, COPD presented to ED with worsening shortness of breath for past 3 days along with cough and productive sputum. Patient was hypoxic upon arrival and was admitted for acute respiratory failure with hypoxia secondary to COPD exacerbation. She was found to have bilateral infiltrate consistent with pneumonia for which she was initially started on IV Rocephin and Levaquin. Patient was treated with IV steroids, inhaled bronchodilators for COPD exacerbation. She clinically improved during the course of admission. Patient subjectively feeling better but requiring oxygen supplementation at rest and on activity. Patient had a 6-minute walk test that revealed patient needs oxygen at rest and on activity. I educated the patient on oxygen use, smoking cessation. She feels well enough to go home on home oxygen. Patient medically stable for discharge on oral Ceftin for pneumonia and p.o. prednisone taper for COPD exacerbation. She was educated on worrisome signs and symptoms and was instructed to return to ED if she develop worsening cough, shortness of breath or hypoxia. Patient will need follow-up with PCP in 1 to 2 weeks. Status at Discharge Functional status at discharge: independent ambulation Overall status at discharge: patient is back to baseline Time Spent with Patient Time attestation: Total time spent providing and/or coordinating discharge services: Exam Constitutional Vital Signs, click to edit/add: Last Vital Signs Temp 97.6 F 12/14/24 07:49 Pulse 74 12/14/24 11:46 Resp 22 H 12/14/24 07:49 BP 104/68 12/14/24 07:49 Pulse Ox 93 L 12/14/24 11:46 O2 Del Method Room Air 12/14/24 11:04 O2 Flow Rate 1 12/14/24 07:49 Documenting provider has reviewed patient's vital signs: yes Common normals: no apparent distress and oriented x3 General appearance: cooperative Respiratory Common normals: normal respiratory effort and no use of accessory muscles Effort & inspection: able to speak in complete sentences Auscultation: wheezes Cardio Common normals: regular rate, S1 normal heart sound and S2 normal heart sound Rate: regular rate Heart sounds: S1 normal and S2 normal Extremity Common normals: no clubbing, cyanosis or edema Neuro Common normals: oriented x3, moves all extremities and no focal motor deficits Psych Common normals: mental status grossly normal, denies hallucinations, denies homicidal ideation and denies suicidal ideation DS: Data Data Completed and Pending Labs on day of discharge: Labs from last 24 hours 12/14/24 06:00 WBC 10.9 RBC 5.55 H Hgb 17.1 H Hct 51.0 H MCV 91.9 MCH 30.8 MCHC 33.5 RDW 12.3 Plt Count 173 MPV 10.1 Seg Neuts % (Manual) 76.0 H Lymphocytes % (Manual) 18.0 L Monocytes % (Manual) 6.0 Eosinophils % (Manual) 0.0 L Basophils % (Manual) 0.0 L Neutrophils # (Manual) 8.28 H Lymphocytes # (Manual) 1.96 Monocytes # (Manual) 0.65 Eosinophils # (Manual) 0.00 Basophils # (Manual) 0.00 Sodium 137 Potassium 3.8 Chloride 99 Carbon Dioxide 35.4 H Anion Gap 6.4 BUN 24.0 H Creatinine 0.99 Est GFR ( Amer) >60 Est GFR (Non-Af Amer) 57 L BUN/Creatinine Ratio 24.2 Glucose 149 H Calcium 8.6 Preliminary micro results at discharge 12/12/24 07:25 Lower Respiratory Culture - Preliminary Sputum - Expectorated Sputum 12/11/24 07:30 Blood Culture Result 2 - Preliminary Blood 12/11/24 07:06 Blood Culture Result 1 - Preliminary Blood NO GROWTH AT 36-48 HOURS. FINAL TO FOLLOW. 12/11/24 07:30 Aerobic Susc Result 2 - Preliminary Blood - Right Forearm Discharge Plan Discharge Disposition: Home, Self-Care Condition: Fair Discharge Medications: New prednisone 20 mg tablet 20 mg PO DAILY Qty: 20 0RF Rx Instructions: 3 tabs daily for 3 days, 2 tabs for 3 days, 1 tab x 3 days, 1/2 tab for 4 days cefuroxime axetil 500 mg tablet 500 mg PO BID 5 Days Qty: 10 0RF Continued trazodone 50 mg tablet 50 mg PO .QHS atenolol 25 mg tablet 25 mg PO .QD omeprazole 40 mg capsule,delayed release(DR/EC) 40 mg PO .ACB simvastatin 40 mg tablet 40 mg PO QPM montelukast 10 mg tablet 10 mg PO .QD lisinopril-hydrochlorothiazide 10-12.5 mg tablet 1 tab PO .QD albuterol sulfate 90 mcg/actuation HFA aerosol inhaler 1 puff INHALATION Q4H PRN (Reason: shortness of breath or wheezing) risperidone 1 mg tablet 1 mg PO .QD buprenorphine-naloxone 8-2 mg film 2 film sublingual .QD Rx Instructions: 2 AND 1/2 FILMS SL DAILY Trelegy Ellipta 100-62.5-25 mcg blister with device 1 inh INHALATION .QD Activity: increase activity as tolerated Diet: advance to your usual diet Print Language: Faroese Forms: Portal Instructions Follow Up Appointments: PCP in one week
--- NOTE | 2024-12-14 14:15 | PC.NURSE ---
Spoke with Marquis at [facility] oxygen . Order received. OK to send pt home with their tank, and have pt call when on way home from hospital. pt to be instructed on this at discharge
--- OUTSIDE RECORDS SUMMARY | 2024-12-15 08:18 | XMS_ITS | CCD ---
Author Organization [facility] Care Team Providers Care Senior Product Engineer Name Role Phone Ector Walker Unavailable Unavailable CHARLENE Contreras Attending Provider Pallavi Contreras Attending Unavailable Pallavi Contreras Admitting Unavailable Filemon Patton Attending Unavailable Filemon Patton Admitting Unavailable NO FAMILY, PHYSICIAN Primary Care Unavailable EVA PALLAVI Admitting Unavailable PALLAVI VELASQUEZ Attending Unavailable PAVMIGUEL, MAX Primary Care Unavailable EVA, PALLAVI Admitting Unavailable EVA PALLAVI Attending Unavailable [facility] Primary Care Unavailable Allergies Allergy Classification Reported Allergen(s) Allergy Type Date of Onset Reaction(s) Facility (1 source) Aspirin Drug Allergy [facility] (1 source) Penicillins Drug allergy (disorder) [facility] Problems Problem Classification Problem Date Documented Date Episodic/Chronic Genitourinary symptoms and ill-defined conditions (1 source) Dysuria; Translations: [Dysuria] Onset: 05-17-2022 Episodic Unclassified (1 source) Z01.812 - Encounter for preprocedural laboratory examination; Translations: [Z01.812 - Encounter for preprocedural laboratory examination] Onset: 09-12-2021 Results Test Name Value Interpretation Reference Range Facil ity Urine Cultureon 05-17-2022 Bacteria identified Cx Nom (U) Reason for Exam Dysuria Urine >100,000 colonies/ml mixed bacterial skin contaminants 2 Days PERFORMED BY: [address] [place] [address] PATHOLOGIST CRM DYNAMICS DEVELOPER MARYANN YIN M.D. [facility] Comment on above: Performed By: #### C UU #### [address] COVID-19 FRMCon 09-12-2021 SARS-CoV-2 (COVID-19) RNA ZACH+probe Ql (Unsp spec) Negative Normal Negative [facility] Comment on above: Order Comment: Healt hcare Worker?: N Result Comment: Testing for SARS-CoV-2 by RT-PCR This test was developed and its performance characteristics determined by [facility] and validated at the [facility]. This test has not been FDA cleared or approved. This test has been authorized by FDA under an Emergency Use Authorization (EUA). This test has been validated in accordance with the FDA's Guidance Document (Policy for Diagnostics Testing in Laboratories Certified to Perform High Complexity Testing under CLIA prior to Emergency Use Authorization for Coronavirus Disease-2019 during the Public Health Emergency) issued on November 27, 2019. This test is only authorized for the duration of time the declaration that circumstances exist justifying the authorization of the emergency use of in vitro diagnostic tests for detection of SARS-CoV-2 virus and/or diagnosis of COVID-19 infection under section 564(b)(1) of the Act, 21 U.S.C. 360bbb-3(b)(1), unless the authorization is terminated or revoked sooner. PERFORMED BY: [place] [address] PATHOLOGIST CRM DYNAMICS DEVELOPER MARYANN YIN M.D. Performed By: #### C OVID 19 [facility] #### [place] [id number] [facility] 01-14-2018 BUN/Creatinine Ratio 11 No Units Normal 10-20 [facility] Comment on above: Performed By: #### 2 572510, [id number], 2846138, 3307196, 4068091, 42443131 ####[facility] [address] [place] [address] Creatinine 0.7 mg/dL Normal 0.5-1.3 [facility] Comment on above: Performed By: #### 2 993085, 34287987, 0950287, 6579532, 1944067, 48354314 ####[facility] [address] [place] [address] Urea nitrogen 8 mg/dL Normal 5-21 [facility] Comment on above: Performed By: #### 2 113010, 12519389, 9096424, 1604765, 1783667, 29578734 ####[facility] [address] [place] [address] Anion gap 15 mmol/L Normal 6-16 [facility] Comment on above: Performed By: #### 2 933899, 71388747, 4691748, 2762140, 0691723, 36647211 ####[facility] [address] [place] [address] Calcium 9.4 mg/dL Normal 8.9-11.1 [facility] Comment on above: Performed By: #### 2 802198, 31520227, 6102855, 1786767, 2381624, 63068977 ####[facility] [address] [place] [address] Chloride 102 mmol/L Normal 101-111 [facility] Comment on above: Performed By: #### 2 959270, 84628110, 3629340, 8481991, 4797095, 63632080 ####[facility] [address] [place] [address] CO2 22 mmol/L Normal 21-31 [facility] Comment on above: Performed By: #### 2 194896, 37640631, 8673850, 4382476, 6811299, 00923667 ####[facility] [address] [place] [address] Glucose mass conc 140 mg/dL Normal 55-199 [facility] Comment on above: Result Comment: If t his glucose result represents a fasting glucose, interpretation should refer to the following reference range: 55-99 mg/dL Performed By: #### 2 935220, 63370477, 8086519, 4867682, 8733820, 61752044 ####[facility] [address] [place] [address] Potassium molar conc 4.1 mmol/L Normal 3.5-5.3 [facility] Comment on above: Performed By: #### 2 973730, 25243453, 2690010, 8597511, 1239945, 83814173 ####[facility] [address] [place] [address] Sodium 135 mmol/L Normal 135-145 [facility] Comment on above: Performed By: #### 2 785980, 29858795, 2277840, 8656931, 4077804, 37246664 ####[facility] [address] [place] [address] CKon 01-14-2018 Creatine kinase (CK) 97 Int._Unit/L Normal 14-261 [facility] Comment on above: Performed By: #### 2 394964, 74307581, 4652356, 7072722, 1081663, 65393401 ####[place] [place] [address] CKMBon 01-14-2018 CREATINE KINASE.MB:CCNC:PT: SER/PLAS:QN:EIA 1.8 ng/mL Normal 0.3-4.9 [facility] Comment on above: Performed By: #### 2 853732, 36938262, 7361323, 0402063, 2915229, 35069408 ####[address] [place] [address] Myoglobinon 01-14-2018 Myoglobin 36 ng/mL Normal <=69 [facility] Comment on above: Performed By: #### 2 773499, 11913261, 8484981, 5413513, 1918195, 10314709 ####[facility] [address] [place] [address] Troponinon 01-14-2018 Troponin I.cardiac mass conc ng/mL Normal <=0.03 [facility] Comment on above: Result Comment: New Troponin Assay 01/08/14ROC ID Cutoff value > or = 0.03 ng/mL in conjunction with clinical conditions of myocardial infarction.([email or web address]/guidelines) Performed By: #### 2 564662, 94969953, 9376133, 4120766, 1620364, 62455542 ####[facility] [address] [place] [address] eGFRon 01-14-2018 eGFR (black) mL/min/{1.73_m2} Normal >=59 [facility] Comment on above: Order Comment: Order added by Discern Expert. Result Comment: eGFR is race adjusted. AA=. Performed By: #### 2 732004, 81583511, 9703368, 0481796, 3414201, 58607548 ####[facility] [address] [place] [address] eGFR (non-black) mL/min/{1.73_m2} Normal >=59 [facility] Comment on above: Order Comment: Order added by Discern Expert. Result Comment: Open Winder valerie kidney disease could be indicated at eGFR's of less than 60 mL/min/1.73m2. Kidney failure is indicated at less than 15 mL/min/1.73m2. Performed By: #### 2 440420, 87147940, 2810147, 5895089, 3731413, 61385175 ####[facility] [address] [place] [address] Encounters Encounter Date Encounter Type Care Provider Facility Start: 12-06-2022 ambulatory PALLAVI VELASQUEZ Facility: Start: 06-02-2022 ambulatory PALLAVI VELASQUEZ Facility: [facility] Start: 05-17-2022 End: 05-17-2022 ambulatory Pallavi Contreras Facility:[facility] Start: 05-17-2022 End: 05-17-2022 Departed Referred [facility]ER[facility] Pallavi Contreras Work Phone: [facility] Start: 09-12-2021 End: 09-12-2021 ambulatory Filemon Patton Facility:[facility] Start: 01-14-2018 End: 01-15-2018 Ambulatory Ector Walker Facility:[facility] Plan of Treatment Date Care Activity Detail Author Bacteria identified in Urine by Culture [facility] Immunizations Immunization Date Immunization Notes Care Provider Amrit dumont 11-30-2021 COVID-19 mRNA, Comirnaty (Pfizer) [facility] Pallavi Contreras Work Phone: [facility] 01-12-2021 COVID-19 mRNA, Comirnaty (Pfizer) [facility] Pallavi Contreras Work Phone: [facility] 12-19-2020 COVID-19 mRNA, Comirnaty (Pfizer) WRI[facility]OSER-C Pallavi Contreras Work Phone: [facility] Payers Date Payer Category Payer Medicaid [id number] 2021 Medicare [id number] 1965 Unknown [id number] [id number] [id number] 1965 Unknown [id number] 2.16.84 [id number] 1959 Self-pay [id number] Unknown Other1 (STD) [id number] Unknown [id number] 2.16.8 [id number] Unknown [id number] 2.16.8 [id number] Social History Date Type Detail [facility] Work Phone: Start: 1965 Sex Assigned At Female [facility] Evaluation note Note Date & Type Note Facility Evaluation note No assessment information availa ble [facility] Work Phone: Summary Purpose Family History No Family History Records FoundNo Family History Records FoundNo Family History Records Found Advance Directives No Advanced Directives Records Found Advance Directive Response Recorded Date/ Time Advance Directives No September 18, 2019 9:36am Chief Complaint and Reason for Visit Chief Complaint Dysuria Additional Source Comments INFORMATION SOURCE (unrecogn ized section and content) DATE CREATED AUTHOR 03/04/2018 Albin Rich [facility] DATE CREATED AUTHOR AUTHOR'S ORGANIZ ATION 05/28/2022 [facility] DATE CREATED AUTHOR AUTHOR'S ORGANIZ ATION 12/06/2022 [facility] Care Teams (unrecognized sec tion and content) Team Status: Inactive Member Role Status Dates JALEN GarciaC Attending Provider Active Goals (unrecognized section and content) Goals may be documented in a n alternate section FOR RECORDS PERTAINING TO PATIENTS WHO ARE OR HAVE BEEN ENROLLED IN A CHEMICAL DEPENDENCY/SUBSTANCEABUSE PROGRAM, SOME INFORMATION MAY BE OMITTED. This clinical summary was aggregated from multiple sources. Caution should be exercised in using it in the provision of clinical care. This summary normalizes information from multiple sources, and as a consequence, information in this document may materially change the coding, format and clinical context of patient data. In addition, data may be omitted in some cases. CLINICAL DECISIONS SHOULD BE BASED ON THE PRIMARY CLINICAL RECORDS. [facility]. provides no warranty or guarantee of the accuracy or completeness of information in this document.
--- NOTE | 2024-12-15 13:04 | CM.DCFOLLOWU ---
Person spoke with: patient How are you feeling? well, spoke to oxygen company today and waiting for them to deliver rest of equipment How is your pain?none Did you understand your discharge instructions?yes Do you have any questions about your discharge instructions?no Were you given any prescriptions at discharge? yes Were you able to get your prescriptions filled?got them today Do you understand how to take your medications as ordered?yes Do you have any questions about your follow up appointment and do you plan to keep your follow up appointment? no questions, kept her follow up on 12/29/24 for Karmen Martinez Is there anything else that you would like to discuss?no Questions/Comments/Concerns/Other:N/A Advised patient to call SW back if oxygen is not delivered today
== END 2024-12-14 15:29 | disposition home or self-care (01) | DRG 177 ==
LOC: ER 08:15 → MS 12-12 14:05
PROVIDERS: Admitting Provider Family Medicine; Emergency Provider Emergency Medicine; PCP Nurse Practitioner Family; Visit Provider Internal Medicine
DX: J15.29 Pneumonia due to other staphylococcus (principal); J96.01 Acute respiratory failure with hypoxia; J44.0 Chronic obstructive pulmonary disease with (acute) lower respiratory infection; J44.1 Chronic obstructive pulmonary disease with (acute) exacerbation; I10 Essential (primary) hypertension; E78.5 Hyperlipidemia, unspecified; F17.210 Nicotine dependence, cigarettes, uncomplicated; D50.9 Iron deficiency anemia, unspecified; K21.9 Gastro-esophageal reflux disease without esophagitis; M54.10 Radiculopathy, site unspecified; R79.89 Other specified abnormal findings of blood chemistry; G47.00 Insomnia, unspecified; Z79.51 Long term (current) use of inhaled steroids; Z79.899 Other long term (current) drug therapy; Z88.0 Allergy status to penicillin; Z88.6 Allergy status to analgesic agent
CPT/HCPCS: 36415; 71045; 71046; 80048; 80076; 82805; 83605; 83735; 83880; 84484; 85007; 85025; 85027; 87040; 87070; 87077; 87150; 87186; 87205; 87804; 87811; 93005; 94640; 94667; 94668; 94761; 96365; 96367; 96368; 96375; 99285; J0456; J0696; J1650; J2919; J3475